=== PATIENT | female | born 1935 | race Caucasian/White ===

== ENCOUNTER 2021-11-04 10:05 | Outpatient (CLI) | payer MEDICARE ==
[2021-11-04 10:34] LABS: INR-International Normal Ratio 2.7; Prothrombin Time 28.9 sec (12.0-14.7)
== END 2021-11-04 10:06 | disposition home or self-care (01) ==
LOC: BURLAB 10:05
PROVIDERS: ATTEND Internal Medicine Cardiovascular Disease
DX: Z51.81 Encounter for therapeutic drug level monitoring (principal); I48.91 Unspecified atrial fibrillation; Z79.01 Long term (current) use of anticoagulants
CPT/HCPCS: 36415; 85610

== ENCOUNTER 2022-01-11 08:09 | Emergency (ER) | payer MEDICARE ==
[2022-01-11 09:11] LABS: #Basophils 0.1 thou/uL (0.0-0.2); #Eosinphils 0.1 thou/uL (0.0-0.7); #Lymphocytes 0.6 thou/uL (1.20-3.40); #Monocytes 0.5 thou/uL (0.11-0.59); #Neutrophils 6.5 thou/uL (1.40-6.50); %Basophils 1.1 % (0.0-1.0); %Eosinophils 1.7 % (0.0-10.0); %Lymphocytes 7.6 % (21.0-51.0); %Monocytes 6.9 % (0.0-10.0); %Neutrophils 82.7 % (42.0-75.0); Hemoglobin 14.7 g/dL (12.0-16.0); Mean Corpuscular HGB CONC 32.9 g/dL (32.0-36.0); Mean Corpuscular Hemoglobin 31.7 pg (27.0-31.0); Mean Corpuscular Volume 96.3 fL (78.0-98.0); Mean Platelet Volume 5.5 fL (7.4-10.4); Platelet Count 301 thou/uL (130-400); RBC Distribution Width 13.3 % (11.5-14.5); Red Blood Cell (RBC) Count 4.64 mill/uL (4.20-5.40); White Blood Cell (WBC) Count 7.9 thou/uL (4.8-10.8)
[2022-01-11 09:18] LABS: INR-International Normal Ratio 2.4; Prothrombin Time 26.4 sec (12.0-14.7)
[2022-01-11 09:19] LABS: PTT 35.1 sec (22.9-36.1)
[2022-01-11 09:24] LABS: ALT (SGPT) 20 U/L (8-55); AST (SGOT) 25 U/L (5-34); Albumin 3.6 g/dL (3.4-4.8); Alkaline Phosphatase 70 U/L (40-110); Anion Gap 15 mmol/L (10-20); BUN (Urea Nitrogen) 23 mg/dL (9.8-20.1); Calc. Creatinine Clearance 0 mL/min (70-130); Calcium 9.3 mg/dL (7.8-10.44); Carbon Dioxide 30 mmol/L (23-31); Chloride 96 mmol/L (98-107); Estimated GFR 57; Globulin 3.1 g/dL (2.4-3.5); Glucose 126 mg/dL (83-110); Potassium 4.6 mmol/L (3.5-5.1); Protein, Total 6.7 g/dL (5.8-8.1); Sodium 136 mmol/L (136-145)
== END 2022-01-11 10:05 | disposition home or self-care (01) ==
LOC: BURERS 08:09
DX: H11.31 Conjunctival hemorrhage, right eye (principal); J44.9 Chronic obstructive pulmonary disease, unspecified; R68.84 Jaw pain; I11.0 Hypertensive heart disease with heart failure; I50.9 Heart failure, unspecified; I48.91 Unspecified atrial fibrillation; Z95.0 Presence of cardiac pacemaker; Z87.891 Personal history of nicotine dependence; Z79.899 Other long term (current) drug therapy
CPT/HCPCS: 36415; 80053; 85025; 85610; 85730; 99283

== ENCOUNTER 2022-04-06 14:03 | Emergency (ER) | payer MEDICARE ==
[2022-04-06] MEDS ORDERED: Oxymetazoline HCl 0.05% (30 ML BOT) ONE (14:17)
[2022-04-06 15:25] LABS: #Lymphocytes 0.5 thou/uL (1.20-3.40); #Monocytes 0.6 thou/uL (0.11-0.59); #Neutrophils 6.6 thou/uL (1.40-6.50); %Basophils 0.6 % (0.0-1.0); %Eosinophils 0.1 % (0.0-10.0); %Lymphocytes 6.9 % (21.0-51.0); %Monocytes 7.3 % (0.0-10.0); %Neutrophils 85.1 % (42.0-75.0); Hemoglobin 11.4 g/dL (12.0-16.0); Mean Corpuscular HGB CONC 30.9 g/dL (32.0-36.0); Mean Corpuscular Hemoglobin 31.2 pg (27.0-31.0); Mean Platelet Volume 5.5 fL (7.4-10.4); Platelet Count 272 10x3/uL (130-400); RBC Distribution Width 14.9 % (11.5-14.5); Red Blood Cell (RBC) Count 3.67 mill/uL (4.20-5.40); White Blood Cell (WBC) Count 7.8 10x3/uL (4.8-10.8)
[2022-04-06 15:32] LABS: INR-International Normal Ratio 2.8; Prothrombin Time 30.9 sec (12.0-14.7)
== END 2022-04-06 15:40 | disposition home or self-care (01) ==
LOC: BURERS 14:03
DX: R04.0 Epistaxis (principal); J44.9 Chronic obstructive pulmonary disease, unspecified; I11.0 Hypertensive heart disease with heart failure; I50.9 Heart failure, unspecified
CPT/HCPCS: 30903; 36415; 85025; 85610